=== PATIENT | male | born 1935 | race Caucasian/White ===

== ENCOUNTER 2019-01-14 01:08 | Outpatient (CLI) | payer MEDICARE, MEDICAID, SELFPAY ==
--- NOTE | 2019-01-14 08:29 | DI.US_ITS ---
SYMPTOM/DIAGNOSIS: TESTICULAR SWELLING, RT, N50.89 TESTICULAR ULTRASOUND: Routine examination. Comparison is made with 11/09/09. The left testicle measures 1.9 by 2 by 1.9 cm. It is homogeneous with normal blood flow. No evidence of an intratesticular mass or torsion is present. The left epididymal head is unremarkable. The right testicle measures 3.8 by 1.6 by 4.1 cm. It is homogeneous with normal blood flow. No evidence of torsion or intratesticular mass is seen. The right epididymis appears grossly unremarkable. There is a large right hydrocele measuring 5.9 by 4 by 6.6 cm. IMPRESSION: Large right hydrocele with a volume of 83 cc's. No evidence of intratesticular mass or torsion.
[2019-01-14 09:40] LABS: Bilirubin Negative (Negative); Blood Small (Negative); Clarity Clear; Glucose Negative (Negative); Ketones Negative (Negative); Leukocyte Esterase Negative (Negative); Nitrite Negative (Negative); Specific Gravity 1.015 (1.005-1.025); Urobilinogen 0.2 EU/dL (Up TO 0.2); pH 6.5 (5-8)
[2019-01-14 09:53] LABS: Bacteria Negative HPF (Negative); C & S Indicated? No; Casts Negative LPF (Negative); Crystals Negative HPF (Negative); Epithelial Cells Few HPF (Negative); Mucus Negative (Negative); WBC 0-2 HPF (0-5)
== END 2019-01-14 01:28 ==
PROVIDERS: PCP Family Medicine; Visit Provider Family Medicine
DX: N50.89 Other specified disorders of the male genital organs (principal); N43.2 Other hydrocele; R41.0 Disorientation, unspecified
CPT/HCPCS: 76870; 81003; 81015

== ENCOUNTER 2019-03-28 17:12 | Emergency (ER) | payer MEDICARE, MEDICAID, SELFPAY ==
[2019-03-28] VITALS (21 sets, daily range): BP systolic 159–191; BP diastolic 86–121; PULSE 41–72; RESP 16–18; TEMP 37–37.1; O2SAT 79–99
[2019-03-28] MEDS: Lidocaine 2% Jelly 6 ML SYR (18:50)
[2019-03-28 18:58] LABS: Bilirubin Negative (Negative); Blood Moderate (Negative); Clarity Clear; Glucose Negative (Negative); Ketones Negative (Negative); Leukocyte Esterase Negative (Negative); Nitrite Negative (Negative); Specific Gravity 1.025 (1.005-1.025); Urobilinogen 0.2 EU/dL (Up TO 0.2); pH 6.5 (5-8)
[2019-03-28 19:07] LABS: Bacteria Rare HPF (Negative); C & S Indicated? No; Casts 5-10 Hyaline LPF (Negative); Crystals Negative HPF (Negative); Epithelial Cells Few HPF (Negative); Mucus Negative (Negative); RBC 20-50 (0-2); WBC 0-2 HPF (0-5)
[2019-03-28] MEDS: Tamsulosin 0.4 MG CAPCR PO (19:55)
--- NOTE | 2019-03-28 20:05 | W.ED.GENAD ---
Discharge Plan Disposition Patient Disposition: HOME Condition: Improving Discharge Details Chief Complaint: Urinary Clinical Impression: Acute urinary retention Primary Care Provider: Aleks Martinez ED Provider: Fernando Craft Home Meds and New Rx's Prescriptions: New tamsulosin [Flomax] 0.4 mg capsule 0.4 mg PO DAILY Qty: 14 RF: 0 Continued Ensure Original liquid 474 ml PO DAILY Qty: 36114 RF: 11 naproxen sodium [Aleve] 220 MG capsule 220 mg PO BID PRNRF: 0 Morphine Sulfate 100 MG/5 ML solution 0.25 - 1 ml PO Q1-4H PRN Qty: 30 RF: 0 aspirin [Adult Low Dose Aspirin] 81 mg tablet,delayed release (DR/EC) 81 mg PO DAILY RF: 0 sennosides [senna] 8.6 mg tablet 17.2 mg PO DAILY RF: 0 donepezil 10 mg tablet 10 mg PO DAILY Qty: 90 RF: 3 amlodipine 5 mg tablet 5 mg PO DAILY Qty: 90 RF: 4 amlodipine 2.5 mg tablet 2.5 mg PO DAILY Qty: 90 RF: 4 Discharge Instructions Instructions: Urinary Retention in Men (ED) Additional Instructions: Please have patient take blood pressure medication as prescribed given noted hypertension in the emergency department. Otherwise make sure catheter stays clean and follow directions for drainage and cleaning. Follow-up with urology next week for removal of catheter and trial urination. If patient develops a fever or chills, new or worsening symptoms, or any further concerns return to the emergency department for reassessment Referrals: Nacho Partida MD [ [facility] STAFF PHYSICIAN] - (Follow-up with urology as directed by their office. If you do not hear from them please call their office on Monday for arrangement of appointment) Discharge Data Discharge Date/Time-TO BE ENTERED AT DEPARTURE: 03/28/19 20:32 Medical Decision Making Patient presenting to the emergency department for complaint of urinary retention. Patient has severe dementia and is oriented to person only. caregiver states that patient had been seen by home health who attempted to place a catheter given that patient has not urinated today but has had plenty of p.o. intake. Patient is on hospice and comfort measures only. Patient denies any pain or discomfort or other symptoms. Physical exam shows a right swollen testicle that has been swollen for a while and family states that is not new. Patient does have mild suprapubic tenderness. Bladder scanner was utilized and shows approximately 150 mL's of retained fluid and patient is unable to urinate. Catheter order was placed along with urinalysis. Review of previous records shows that patient has had testicular swelling for greater than 6 months. This is nonacute in nature. Patient had a total of 450 mL's of output after placement and urinalysis shows blood in the urine but otherwise no signs of infection. Given urinary retention I do feel its beneficial for patient to leave catheter in place and to be started on Flomax pending follow-up with urology. Otherwise given the patient is a hospice patient with no other complaints I do not feel that any other evaluation is needed at this time. Return precautions were discussed. Patient placed upon follow-up list for urology appointment. Patient was hypertensive in the emergency department so caregiver was instructed to please give patient's blood pressure medication as normally prescribed otherwise given that patient is asymptomatic I do not feel that any other interventions are needed. HPI General Mode of arrival: ambulatory. Date/Time Provider Initiated Documentation: 03/28/19 17:27. Limitations to Documentation: no limitations. Information obtained by: patient and RN notes reviewed. History of Present Illness 83 year old M presents to the emergency department with the chief complaint of Urinary retention, Quality is described as other (denies pain), Patient started experiencing this hour(s) (8) and it has been constant. No relieving factors improve symptom(s), No exacerbating factors reported . Patient notes no other symptoms.. Patient did receive the following treatments prior to arrival, none Related Data Home Medications Medication Instructions Recorded Confirmed naproxen sodium [Aleve] 220 mg PO BID PRN 06/16/15 12/26/18 aspirin 81 mg tablet,delayed 81 mg PO DAILY 06/12/18 03/28/19 release sennosides 8.6 mg tablet 17.2 mg PO DAILY tab 06/12/18 03/28/19 food supplement, lactose-reduced 474 ml PO DAILY #22086 ml 10/03/18 03/28/19 oral liquid donepezil 10 mg tablet 10 mg PO DAILY #90 tab 10/08/18 03/28/19 amlodipine 2.5 mg tablet 2.5 mg PO DAILY #90 tab 01/17/19 amlodipine 5 mg tablet 5 mg PO DAILY #90 tab 01/17/19 tamsulosin [Flomax] 0.4 mg PO DAILY #14 cap 03/28/19 Previous Rx's Medication Instructions Recorded food supplement, lactose-reduced 474 ml PO DAILY #64256 ml 10/03/18 oral liquid donepezil 10 mg tablet 10 mg PO DAILY #90 tab 10/08/18 amlodipine 2.5 mg tablet 2.5 mg PO DAILY #90 tab 01/17/19 amlodipine 5 mg tablet 5 mg PO DAILY #90 tab 01/17/19 tamsulosin [Flomax] 0.4 mg PO DAILY #14 cap 03/28/19 Allergies Allergy/AdvReac Type Severity Reaction Status Date / Time Penicillins Allergy Unknown Unverified 03/28/19 17:40 General Stated Complaint: Urinary MICHAEL: 3 Review of Systems Constitutional Denies body ache(s), Denies chills, Denies fever(s) and Denies malaise Cardiovascular Denies chest pain Respiratory Reports system reviewed and no additional complaints, except as docu Gastrointestinal Denies abdominal pain, Denies nausea and Denies vomiting Genitourinary Reports as per HPI, Denies hematuria, Reports difficulty urinating, Denies dysuria, Reports scrotal swelling, Denies testicular pain and Denies urinary urgency PFSH Surgical History Open Carpal Tunnel release Family History Mother No problems noted. Father Alzheimer disease Sister No problems noted. Sister No problems noted. Brother No problems noted. Brother No problems noted. Brother No problems noted. Social History Smoking/Tobacco Use Status: Former Tobacco Use Alcohol Intake: never Drug use: Never Substance use type: does not use What type of physical activity do you participate in: none Estrellita/Christianity: MORAVIAN Seatbelt use: always Additional Social history: unable to assess Exam Const General: cooperative and no acute distress Orientation: alert, awake and oriented to person Resp Effort & Inspection: normal respiratory effort and able to speak in complete sentences Auscultation: clear to auscultation bilaterally Cardio Rate: regular rate Rhythm: regular rhythm Heart Sounds: S1 normal and S2 normal GI Palpation: tender suprapubicly Penis: normal penis Meatus: meatus normal Testes: testicular swelling on the right Neuro General: alert, awake and oriented x3 Extrem General: normal capillary refill Course Vital Signs Temperature 37.0 C 03/28/19 17:11 Pulse 65 03/28/19 17:11 Respiratory Rate 16 03/28/19 17:11 Blood Pressure 183/92 H 03/28/19 17:11 Pulse Oximetry 97 03/28/19 17:11 Temperature 37.1 C 03/28/19 19:59 Temperature Source Skin 03/28/19 19:59 Pulse 62 03/28/19 19:59 Respiratory Rate 18 03/28/19 19:59 Blood Pressure 190/121 H 03/28/19 19:59 Blood Pressure Mean 138 03/28/19 19:46 Blood Pressure Position Sitting 03/28/19 17:11 Pulse Oximetry 95 03/28/19 19:59 Oxygen Delivery Method Room Air 03/28/19 19:59 Oxygen Flow Rate 0 03/28/19 19:59 Pain Level 0 03/28/19 19:59 Comment 03/28/19 17:11 Lab/Test Results Lab/Test Results: Laboratory Tests Range/Units 03/28/19 18:45 Urine Color (Yellow) Yellow Urine Clarity Clear Urine pH (5-8) 6.5 Ur Specific [place] (1.005-1.025) 1.025 Urine Protein (Negative) mg/dL >=300 H Urine Ketones (Negative) mg/dL Negative Urine Blood (Negative) Moderate H Urine Nitrite (Negative) Negative Urine Bilirubin (Negative) Negative Urine Urobilinogen (Up TO 0.2) EU/dL 0.2 Ur Leukocyte Esterase (Negative) Negative Urine RBC (0-2) 20-50 H Urine WBC (0-5) HPF 0-2 Ur Epithelial Cells (Negative) HPF Few Urine Crystals (Negative) HPF Negative Urine Bacteria (Negative) HPF Rare Urine Casts (Negative) LPF 5-10 hyaline Urine Mucus (Negative) Negative Ur Culture Indicated? No Urine Glucose (Negative) mg/dL Negative
--- NOTE | 2019-03-28 20:08 | ED.GENADUL_ITS ---
Discharge Plan Disposition Patient Disposition: HOME Condition: Improving Discharge Details Chief Complaint: Urinary Clinical Impression: Acute urinary retention Primary Care Provider: Aleks Martinez ED Provider: Fernando Craft Home Meds and New Rx's Prescriptions: New tamsulosin [Flomax] 0.4 mg capsule 0.4 mg PO DAILY Qty: 14 RF: 0 Continued Ensure Original liquid 474 ml PO DAILY Qty: 26098 RF: 11 naproxen sodium [Aleve] 220 MG capsule 220 mg PO BID PRNRF: 0 Morphine Sulfate 100 MG/5 ML solution 0.25 - 1 ml PO Q1-4H PRN Qty: 30 RF: 0 aspirin [Adult Low Dose Aspirin] 81 mg tablet,delayed release (DR/EC) 81 mg PO DAILY RF: 0 sennosides [senna] 8.6 mg tablet 17.2 mg PO DAILY RF: 0 donepezil 10 mg tablet 10 mg PO DAILY Qty: 90 RF: 3 amlodipine 5 mg tablet 5 mg PO DAILY Qty: 90 RF: 4 amlodipine 2.5 mg tablet 2.5 mg PO DAILY Qty: 90 RF: 4 Discharge Instructions Instructions: Urinary Retention in Men (ED) Additional Instructions: Please have patient take blood pressure medication as prescribed given noted h ypertension in the emergency department. Otherwise make sure catheter stays clean and follow directions for drainage and cleaning. Follow-up with urology next week for removal of catheter and trial urination. If patient develops a fever or chills, new or worsening symptoms, or any further concerns return to the emergency department for reassessment Referrals: Nacho Partida MD [ [facility] STAFF PHYSICIAN] - (Follow-up with urology as directed by their office. If you do not hear from them please call their office on Monday for arrangement of appointment) Discharge Data Discharge Date/Time-TO BE ENTERED AT DEPARTURE: 03/28/19 20:32 Medical Decision Making Patient presenting to the emergency department for complaint of urinary retention. Patient has severe dementia and is oriented to person only. caregiver states that patient had been seen by home health who attempted to place a catheter given that patient has not urinated today but has had plenty of p.o. intake. Patient is on hospice and comfort measures only. Patient denies any pain or discomfort or other symptoms. Physical exam shows a right swollen testicle that has been swollen for a while and family states that is not new. Patient does have mild suprapubic tenderness. Bladder scanner was utilized and shows approximately 150 mL's of retained fluid and patient is unable to urinate. Catheter order was placed along with urinalysis. Review of previous records shows that patient has had testicular swelling for greater than 6 months. This is nonacute in nature. Patient had a total of 450 mL's of output after placement and urinalysis shows blood in the urine but otherwise no signs of infection. Given urinary retention I do feel its beneficial for patient to leave catheter in place and to be started on Flomax pending follow-up with urology. Otherwise given the patient is a hospice patient with no other complaints I do not feel that any other evaluation is needed at this time. Return precautions were discussed. Patient placed upon follow-up list for urology appointment. Patient was hypertensive in the emergency department so caregiver was instructed to please give patient's blood pressure medication as normally prescribed otherwise given that patient is asymptomatic I do not feel that any other interventions are needed. HPI General Mode of arrival: ambulatory . Date/Time Provider Initiated Documentation: 03/28/19 17:27 . Limitations to Documentation: no limitations . Information obtained by: patient and RN notes reviewed . History of Present Illness 83 year old M presents to the emergency department with the chief complaint of Urinary retention, Quality is described as other (denies pain), Patient started experiencing this hour(s) (8) and it has been constant. No relieving factors improve symptom(s), No exacerbating factors reported . Patient notes no other symptoms.. Patient did receive the following treatments prior to arrival, none Related Data Home Medications Medication Instructions Recorded Confirmed naproxen sodium [Aleve] 220 mg PO BID PRN 06/16/15 12/26/18 aspirin 81 mg tablet,delayed 81 mg PO DAILY 06/12/18 03/28/19 release sennosides 8.6 mg tablet 17.2 mg PO DAILY tab 06/12/18 03/28/19 food supplement, lactose-reduced 474 ml PO DAILY #22180 ml 10/03/18 03/28/19 oral liquid donepezil 10 mg tablet 10 mg PO DAILY #90 tab 10/08/18 03/28/19 amlodipine 2.5 mg tablet 2.5 mg PO DAILY #90 tab 01/17/19 amlodipine 5 mg tablet 5 mg PO DAILY #90 tab 01/17/19 tamsulosin [Flomax] 0.4 mg PO DAILY #14 cap 03/28/19 Previous Rx's Medication Instructions Recorded food supplement, lactose-reduced 474 ml PO DAILY #21897 ml 10/03/18 oral liquid donepezil 10 mg tablet 10 mg PO DAILY #90 tab 10/08/18 amlodipine 2.5 mg tablet 2.5 mg PO DAILY #90 tab 01/17/19 amlodipine 5 mg tablet 5 mg PO DAILY #90 tab 01/17/19 tamsulosin [Flomax] 0.4 mg PO DAILY #14 cap 03/28/19 Allergies Allergy/AdvReac Type Severity Reaction Status Date / Time Penicillins Allergy Unknown Unverified 03/28/19 17:40 General Stated Complaint: Urinary MICHAEL: 3 Review of Systems Constitutional Denies body ache(s), Denies chills, Denies fever(s) and Denies malaise Cardiovascular Denies chest pain Respiratory Reports system reviewed and no additional complaints, except as docu Gastrointestinal Denies abdominal pain, Denies nausea and Denies vomiting Genitourinary Reports as per HPI, Denies hematuria, Reports difficulty urinating, Denies dysuria, Reports scrotal swelling, Denies testicular pain and Denies urinary urgency [facility] Surgical History Open Carpal Tunnel release Family History Mother No problems noted. Father Alzheimer disease Sister No problems noted. Sister No problems noted. Brother No problems noted. Brother No problems noted. Brother No problems noted. Social History Smoking/Tobacco Use Status: Former Tobacco Use Alcohol Intake: never Drug use: Never Substance use type: does not use What type of physical activity do you participate in: none Estrellita/Worship: QUAKER Seatbelt use: always Additional Social history: unable to assess Exam Const General: cooperative and no acute distress Orientation: alert, awake and oriented to person Resp Effort & Inspection: normal respiratory effort and able to speak in complete sentences Auscultation: clear to auscultation bilaterally Cardio Rate: regular rate Rhythm: regular rhythm Heart Sounds: S1 normal and S2 normal GI Palpation: tender suprapubicly Penis: normal penis Meatus: meatus normal Testes: testicular swelling on the right Neuro General: alert, awake and oriented x3 Extrem General: normal capillary refill Course Vital Signs Temperature 37.0 C 03/28/19 17:11 Pulse 65 03/28/19 17:11 Respiratory Rate 16 03/28/19 17:11 Blood Pressure 183/92 H 03/28/19 17:11 Pulse Oximetry 97 03/28/19 17:11 Temperature 37.1 C 03/28/19 19:59 Temperature Source Skin 03/28/19 19:59 Pulse 62 03/28/19 19:59 Respiratory Rate 18 03/28/19 19:59 Blood Pressure 190/121 H 03/28/19 19:59 Blood Pressure Mean 138 03/28/19 19:46 Blood Pressure Position Sitting 03/28/19 17:11 Pulse Oximetry 95 03/28/19 19:59 Oxygen Delivery Method Room Air 03/28/19 19:59 Oxygen Flow Rate 0 03/28/19 19:59 Pain Level 0 03/28/19 19:59 Comment 03/28/19 17:11 Lab/Test Results Lab/Test Results: Laboratory Tests Range/Units 03/28/19 18:45 Urine Color (Yellow) Yellow Urine Clarity Clear Urine pH (5-8) 6.5 Ur Specific [place] (1.005-1.025) 1.025 Urine Protein (Negative) mg/dL >=300 H Urine Ketones (Negative) mg/dL Negative Urine Blood (Negative) Moderate H Urine Nitrite (Negative) Negative Urine Bilirubin (Negative) Negative Urine Urobilinogen (Up TO 0.2) EU/dL 0.2 Ur Leukocyte Esterase (Negative) Negative Urine RBC (0-2) 20-50 H Urine WBC (0-5) HPF 0-2 Ur Epithelial Cells (Negative) HPF Few Urine Crystals (Negative) HPF Negative Urine Bacteria (Negative) HPF Rare Urine Casts (Negative) LPF 5-10 hyaline Urine Mucus (Negative) Negative Ur Culture Indicated? No Urine Glucose (Negative) mg/dL Negative
== END 2019-03-28 20:32 | disposition home or self-care (01) ==
PROVIDERS: Emergency Provider Nurse Practitioner Family; PCP Family Medicine
DX: R33.9 Retention of urine, unspecified (principal); F03.90 Unspecified dementia, unspecified severity, without behavioral disturbance, psychotic disturbance, mood disturbance, and anxiety; I12.9 Hypertensive chronic kidney disease with stage 1 through stage 4 chronic kidney disease, or unspecified chronic kidney disease; N18.9 Chronic kidney disease, unspecified; J44.9 Chronic obstructive pulmonary disease, unspecified; Z87.891 Personal history of nicotine dependence
CPT/HCPCS: 51702; 99283; 81003; 81015

== ENCOUNTER 2019-04-05 09:57 | Outpatient (REF) | payer MEDICARE, MEDICAID, SELFPAY | END 2019-04-05 10:17 | LOC: LBN 09:57 | PROVIDERS: PCP Family Medicine; Visit Provider Family Medicine | DX: R33.9 Retention of urine, unspecified (principal) | CPT/HCPCS: 87077; 87086; 87186 ==

== ENCOUNTER 2019-04-05 18:18 | Inpatient (IN) | payer MEDICARE, MEDICAID, SELFPAY ==
[2019-04-05] VITALS (19 sets, daily range): BP systolic 141–175; BP diastolic 73–105; PULSE 63–117; RESP 19–36; TEMP 37.8–39; O2SAT 93–100
--- NOTE | 2019-04-05 18:28 | W.ED.GENAD ---
Discharge Plan Disposition Patient Disposition: [facility] INPATIENT Condition: Stable Discharge Details Chief Complaint: GenMedical Clinical Impression: Sepsis due to urinary tract infection Primary Care Provider: Aleks Martinez ED Provider: Lewis Humphrey Home Meds and New Rx's Prescriptions: No Action Ensure Original liquid 474 ml PO DAILY Qty: 91132 RF: 11 melatonin 5 mg tablet 5 mg PO HS PRN (Reason: sleep) Qty: 30 RF: 2 sulfamethoxazole-trimethoprim [Bactrim DS] 800-160 mg tablet 1 tab PO BID Qty: 28 RF: 0 naproxen sodium [Aleve] 220 MG capsule 220 mg PO BID PRNRF: 0 Morphine Sulfate 100 MG/5 ML solution 0.25 - 1 ml PO Q1-4H PRN Qty: 30 RF: 0 aspirin [Adult Low Dose Aspirin] 81 mg tablet,delayed release (DR/EC) 81 mg PO DAILY RF: 0 donepezil 10 mg tablet 10 mg PO DAILY Qty: 90 RF: 3 amlodipine 5 mg tablet 5 mg PO DAILY Qty: 90 RF: 4 amlodipine 2.5 mg tablet 2.5 mg PO DAILY Qty: 90 RF: 4 tamsulosin [Flomax] 0.4 mg capsule 0.4 mg PO DAILY Qty: 30 RF: 11 sennosides [senna] 8.6 mg tablet 17.2 mg PO DAILY RF: 0 Medical Decision Making 83 yo le with hx of dementia which limits hx I can obtain from him as he only knows his name, copd, htn, hld, aaa, who comes in with general weakness and inability to ambulate and has a fever, unclear how long the fever has been going on. He has no rashes, does have diminished breath sounds at the bases bilaterally on exam, and earlier this week did have a greenwood placed for urinary retention. given his fever and weakness suspect infectious etiology, will order labs and cultures and cxr and monitor. Pt is laughing in no distress on my exam and is hd stable labs show wbc of 16, and urine positive for nitrite so will start ceftriaxone. Pt's dpoa Meccajohndario arrived and states he is on hospice and I confirmed this with Dr. Garcia. His colst form states he is willing to have abx and given the reason he is on hospice is his aaa per Dr. Garcia he can be admitted to the hospitalist given this is unrelated to his aaa. I spoke with Dr. flynn who accepts the patient for admission Differential Diagnosis sepsis, uti, pna Medical Records Medical records reviewed: Yes I reviewed the patient's medical records. Imaging Data Radiologic Study: Attestation: I personally reviewed and interpreted this imaging study as follows: Imaging: X-Ray Radiologist's impression: IMPRESSION: Concern for possible developing left retrocardiac airspace disease. Lateral film may be beneficial if clinically warranted. Lab Data Lab results reviewed: Yes I reviewed the patient's lab results. ECG Data Attestation: I personally reviewed and interpreted this ECG (s) as follows: Prior ECG tracings: not available for review Interpretation: afib, rate of 80, qtc 434 HPI General Mode of arrival: EMS. Date/Time Provider Initiated Documentation: 04/05/19 18:23. Limitations to Documentation: altered mental status. Information obtained by: EMS. History of Present Illness 83 year old M presents to the emergency department with the chief complaint of weakness, described as moderate, Patient started experiencing this unknown and it has been constant. No relieving factors improve symptom(s), No exacerbating factors reported . Patient notes fever/chills. Related Data Home Medications Medication Instructions Recorded Confirmed naproxen sodium [Aleve] 220 mg PO BID PRN 06/16/15 04/05/19 aspirin 81 mg tablet,delayed 81 mg PO DAILY 06/12/18 04/05/19 release food supplement, lactose-reduced 474 ml PO DAILY #24683 ml 10/03/18 04/05/19 oral liquid donepezil 10 mg tablet 10 mg PO DAILY #90 tab 10/08/18 04/05/19 amlodipine 2.5 mg tablet 2.5 mg PO DAILY #90 tab 01/17/19 04/05/19 amlodipine 5 mg tablet 5 mg PO DAILY #90 tab 01/17/19 04/05/19 tamsulosin 0.4 mg capsule 0.4 mg PO DAILY #30 cap 04/03/19 04/05/19 melatonin 5 mg tablet 5 mg PO HS PRN #30 tab 04/05/19 04/05/19 sennosides 8.6 mg tablet 17.2 mg PO DAILY tab 04/05/19 04/05/19 sulfamethoxazole 800 1 tab PO BID #28 tab 04/05/19 04/05/19 mg-trimethoprim 160 mg tablet Previous Rx's Medication Instructions Recorded food supplement, lactose-reduced 474 ml PO DAILY #45555 ml 10/03/18 oral liquid donepezil 10 mg tablet 10 mg PO DAILY #90 tab 10/08/18 amlodipine 2.5 mg tablet 2.5 mg PO DAILY #90 tab 01/17/19 amlodipine 5 mg tablet 5 mg PO DAILY #90 tab 01/17/19 tamsulosin 0.4 mg capsule 0.4 mg PO DAILY #30 cap 04/03/19 melatonin 5 mg tablet 5 mg PO HS PRN #30 tab 04/05/19 sulfamethoxazole 800 1 tab PO BID #28 tab 04/05/19 mg-trimethoprim 160 mg tablet Allergies Allergy/AdvReac Type Severity Reaction Status Date / Time Penicillins Allergy Unknown Unverified 04/05/19 19:24 General Stated Complaint: GenMedical MICHAEL: 3 Review of Systems Review of Systems Unobtainable due to mental status Gastrointestinal Denies vomiting PFSH Social History Smoking/Tobacco Use Status: Former Tobacco Use Alcohol Intake: never Drug use: Never Substance use type: does not use What type of physical activity do you participate in: none Estrellita/Baptist: [employer]IN[employer] Seatbelt use: always Additional Social history: unable to assess Exam Const General: no acute distress Orientation: alert HENMT Head: normal to inspection Ears: external ears normal General nose exam: external nose normal Mouth: moist mucous membranes Eyes General: appearance normal, both eyes and all related structures Neck Neck: normal visual inspection Resp Effort & Inspection: normal respiratory effort and able to speak in complete sentences Cardio Rate: regular rate Skin General skin exam: no rashes or lesions noted Neuro General: alert Extrem General: normal to inspection Psych Mental Status: mental status grossly normal Course Vital Signs Temperature 37.8 C H 04/05/19 18:18 Pulse 85 04/05/19 18:18 Respiratory Rate 30 H 04/05/19 18:18 Blood Pressure 145/94 H 04/05/19 18:18 Pulse Oximetry 96 04/05/19 18:18 Temperature 37.8 C H 04/05/19 18:18 Temperature Source Skin 04/05/19 18:18 Pulse 85 04/05/19 18:18 Respiratory Rate 30 H 04/05/19 18:18 Blood Pressure 145/94 H 04/05/19 18:18 Blood Pressure Position Sitting 04/05/19 18:18 Pulse Oximetry 96 04/05/19 18:18 Oxygen Delivery Method Room Air 04/05/19 18:18 Oxygen Flow Rate 0 04/05/19 18:18 Lab/Test Results Lab/Test Results: 04/05/19 18:14 Blood Blood Culture - Pending 04/05/19 18:14 Blood Blood Culture - Pending
--- NOTE | 2019-04-05 18:32 | ED.GENADUL_ITS ---
Discharge Plan Disposition Patient Disposition: [facility] INPATIENT Condition: Stable Discharge Details Chief Complaint: GenMedical Clinical Impression: Sepsis due to urinary tract infection Primary Care Provider: Aleks Martinez ED Provider: Lewis Humphrey Home Meds and New Rx's Prescriptions: No Action Ensure Original liquid 474 ml PO DAILY Qty: 25390 RF: 11 melatonin 5 mg tablet 5 mg PO HS PRN (Reason: sleep) Qty: 30 RF: 2 sulfamethoxazole-trimethoprim [Bactrim DS] 800-160 mg tablet 1 tab PO BID Qty: 28 RF: 0 naproxen sodium [Aleve] 220 MG capsule 220 mg PO BID PRNRF: 0 Morphine Sulfate 100 MG/5 ML solution 0.25 - 1 ml PO Q1-4H PRN Qty: 30 RF: 0 aspirin [Adult Low Dose Aspirin] 81 mg tablet,delayed release (DR/EC) 81 mg PO DAILY RF: 0 donepezil 10 mg tablet 10 mg PO DAILY Qty: 90 RF: 3 amlodipine 5 mg tablet 5 mg PO DAILY Qty: 90 RF: 4 amlodipine 2.5 mg tablet 2.5 mg PO DAILY Qty: 90 RF: 4 tamsulosin [Flomax] 0.4 mg capsule 0.4 mg PO DAILY Qty: 30 RF: 11 sennosides [senna] 8.6 mg tablet 17.2 mg PO DAILY RF: 0 Medical Decision Making 83 yo le with hx of dementia which limits hx I can obtain from him as he only knows his name, copd, htn, hld, aaa, who comes in with general weakness and inability to ambulate and has a fever, unclear how long the fever has been going on. He has no rashes, does have diminished breath sounds at the bases bilaterally on exam, and earlier this week did have a greenwood placed for urinary retention. given his fever and weakness suspect infectious etiology, will order labs and cultures and cxr and monitor. Pt is laughing in no distress on my exam and is hd stable labs show wbc of 16, and urine positive for nitrite so will start ceftriaxone. Pt's dpoa Meccajohndario arrived and states he is on hospice and I confirmed this with Dr. Garcia. His colst form states he is willing to have abx and given the reason he is on hospice is his aaa per Dr. Garcia he can be admitted to the hospitalist given this is unrelated to his aaa. I spoke with Dr. flynn who accepts the patient for admission Differential Diagnosis sepsis, uti, pna Medical Records Medical records reviewed: Yes I reviewed the patient's medical records. Imaging Data Radiologic Study: Attestation: I personally reviewed and interpreted this imaging study as follows: Imaging: X-Ray Radiologist's impression: IMPRESSION: Concern for possible developing left retrocardiac airspace disease. Lateral film may be beneficial if clinically warranted. Lab Data Lab results reviewed: Yes I reviewed the patient's lab results. ECG Data Attestation: I personally reviewed and interpreted this ECG (s) as follows: Prior ECG tracings: not available for review Interpretation: afib, rate of 80, qtc 434 HPI General Mode of arrival: EMS . Date/Time Provider Initiated Documentation: 04/05/19 18:23 . Limitations to Documentation: altered mental status . Information obtained by: EMS . History of Present Illness 83 year old M presents to the emergency department with the chief complaint of weakness, described as moderate, Patient started experiencing this unknown and it has been constant. No relieving factors improve symptom(s), No exacerbating factors reported . Patient notes fever/chills. Related Data Home Medications Medication Instructions Recorded Confirmed naproxen sodium [Aleve] 220 mg PO BID PRN 06/16/15 04/05/19 aspirin 81 mg tablet,delayed 81 mg PO DAILY 06/12/18 04/05/19 release food supplement, lactose-reduced 474 ml PO DAILY #34241 ml 10/03/18 04/05/19 oral liquid donepezil 10 mg tablet 10 mg PO DAILY #90 tab 10/08/18 04/05/19 amlodipine 2.5 mg tablet 2.5 mg PO DAILY #90 tab 01/17/19 04/05/19 amlodipine 5 mg tablet 5 mg PO DAILY #90 tab 01/17/19 04/05/19 tamsulosin 0.4 mg capsule 0.4 mg PO DAILY #30 cap 04/03/19 04/05/19 melatonin 5 mg tablet 5 mg PO HS PRN #30 tab 04/05/19 04/05/19 sennosides 8.6 mg tablet 17.2 mg PO DAILY tab 04/05/19 04/05/19 sulfamethoxazole 800 1 tab PO BID #28 tab 04/05/19 04/05/19 mg-trimethoprim 160 mg tablet Previous Rx's Medication Instructions Recorded food supplement, lactose-reduced 474 ml PO DAILY #74038 ml 10/03/18 oral liquid donepezil 10 mg tablet 10 mg PO DAILY #90 tab 10/08/18 amlodipine 2.5 mg tablet 2.5 mg PO DAILY #90 tab 01/17/19 amlodipine 5 mg tablet 5 mg PO DAILY #90 tab 01/17/19 tamsulosin 0.4 mg capsule 0.4 mg PO DAILY #30 cap 04/03/19 melatonin 5 mg tablet 5 mg PO HS PRN #30 tab 04/05/19 sulfamethoxazole 800 1 tab PO BID #28 tab 04/05/19 mg-trimethoprim 160 mg tablet Allergies Allergy/AdvReac Type Severity Reaction Status Date / Time Penicillins Allergy Unknown Unverified 04/05/19 19:24 General Stated Complaint: GenMedical MICHAEL: 3 Review of Systems Review of Systems Unobtainable due to mental status Gastrointestinal Denies vomiting PFSH Social History Smoking/Tobacco Use Status: Former Tobacco Use Alcohol Intake: never Drug use: Never Substance use type: does not use What type of physical activity do you participate in: none Estrellita/Mormonism: ANGLICAN Seatbelt use: always Additional Social history: unable to assess Exam Const General: no acute distress Orientation: alert HENMT Head: normal to inspection Ears: external ears normal General nose exam: external nose normal Mouth: moist mucous membranes Eyes General: appearance normal, both eyes and all related structures Neck Neck: normal visual inspection Resp Effort & Inspection: normal respiratory effort and able to speak in complete sentences Cardio Rate: regular rate Skin General skin exam: no rashes or lesions noted Neuro General: alert Extrem General: normal to inspection Psych Mental Status: mental status grossly normal Course Vital Signs Temperature 37.8 C H 04/05/19 18:18 Pulse 85 04/05/19 18:18 Respiratory Rate 30 H 04/05/19 18:18 Blood Pressure 145/94 H 04/05/19 18:18 Pulse Oximetry 96 04/05/19 18:18 Temperature 37.8 C H 04/05/19 18:18 Temperature Source Skin 04/05/19 18:18 Pulse 85 04/05/19 18:18 Respiratory Rate 30 H 04/05/19 18:18 Blood Pressure 145/94 H 04/05/19 18:18 Blood Pressure Position Sitting 04/05/19 18:18 Pulse Oximetry 96 04/05/19 18:18 Oxygen Delivery Method Room Air 04/05/19 18:18 Oxygen Flow Rate 0 04/05/19 18:18 Lab/Test Results Lab/Test Results: 04/05/19 18:14 Blood Blood Culture - Pending 04/05/19 18:14 Blood Blood Culture - Pending
[2019-04-05 18:45] LABS: Abs Immature Grans 0.04 k/cumm (0.0-0.09); Absolute Basophil Count 0.03 k/cumm (0.0-0.2); Absolute Eosinophil Count 0.15 k/cumm (0.0-0.7); Absolute Lymphocyte Count 1.23 k/cumm (1.2-3.4); Absolute Monocyte Count 1.04 k/cumm (0.11-0.7); Absolute Neutrophil Count 13.97 k/cumm (1.2-6.7); Basophils % 0.2; Eosinophils % 0.9; HCT 50.5 % (40.0-50.0); HGB 16.7 g/dL (13.5-17.5); Immature Grans % 0.2; Lymphocytes % 7.5; Mean Corp. HGB Concentration 33.1 g/dL (32.0-36.0); Mean Corpuscular Hemoglobin 30.7 pg (27.0-33.0); Mean Corpuscular Volume 92.8 fL (80-95); Mean Platelet Volume 11.5 fL (8.0-11.0); Monocytes % 6.3; Neutrophils % 84.9; Platelet Count 156 x1000/uL (130-400); RBC 5.44 m/cumm (4.50-6.00); RBC Distribution Width 13.9 % (11.8-14.1); White Blood Cell Count 16.46 k/cumm (4.4-10.8)
[2019-04-05 18:47] LABS: Lactate-non-spesis 1.1 mmol/l (0.6-1.4)
--- NOTE | 2019-04-05 18:51 | DI.RAD_ITS ---
SYMPTOM/DIAGNOSIS: FEVER PORTABLE CHEST: Comparison is made with 15 March 2012. Comparison is also made with chest CT dated 26 March 2018. The heart is again noted to be enlarged. The aorta is tortuous. There is a question of some increased densities seen at the left lung base. There may be a tiny left pleural effusion. The right lung appears clear. IMPRESSION: Cardiomegaly. Question of a left lower lobe infiltrate.
[2019-04-05 19:04] LABS: ALT 19 U/L (12-78); AST 17 U/L (15-37); Albumin 3.8 g/dL (3.4-5.0); Alkaline Phosphatase 112 U/L (46-116); Anion Gap 9.5 mmol/L (3-11); BUN 25 mg/dL (7-18); Bilirubin, Total 1.2 mg/dL (0.2-1.0); CO2 27.5 mmol/L (21.0-32.0); CREATININE 1.56 mg/dL (0.70-1.30); Chloride 103 mmol/L (98-107); Estimated GFR 42.82 (mL/min/1.73m2); Glucose 124 mg/dL (70-100); PTT Activated 25.2 sec (21.0-31.4); Potassium 4.1 mmol/L (3.5-5.1); Prothrombin Time 10.2 sec (9.3-11.0); Sodium 140 mmol/L (136-145); Total Protein 7.8 g/dL (6.4-8.2)
[2019-04-05] MEDS: Normal Saline 1,000 ML 1000 ML IV (19:40)
[2019-04-05] MEDS: cefTRIAXone 2 GM/50 ML BAG IVPB (19:41)
[2019-04-05] MEDS: Normal Saline Flush 10 ML SYR IVP (19:42)
--- NOTE | 2019-04-05 19:47 | DI.VRAD_ITS ---
EXAM: XR Chest, 1 View EXAM DATE/TIME: 04/05/2019 6:52 PM CLINICAL HISTORY: 83 years old, male; Fever TECHNIQUE: Imaging protocol: XR of the chest, 1 view. COMPARISON: CTA THORAX/ABDOMEN/PELVIS 03/26/2018 7:18 AM FINDINGS: Lungs: Subtle hazy/patchy opacities in the left retrocardiac region. Question of right lung base atelectasis. Remainder of the lungs are grossly clear. Pleural space: Unremarkable. No pleural effusion. No pneumothorax. Heart/Mediastinum: Mild cardiomegaly suggested. Vasculature: Tortuous and calcified aorta. Bones/joints: No acute abnormality or aggressive osseous lesion. IMPRESSION: Concern for possible developing left retrocardiac airspace disease. Lateral film may be beneficial if clinically warranted. Dictated and Authenticated by: Shane Zambrano MD. Ordering:CUCO Saucedo MD
[2019-04-05 19:51] LABS: Bilirubin Negative (Negative); Blood Large (Negative); Clarity Cloudy (Clear); Glucose Negative (Negative); Ketones Negative (Negative); Leukocyte Esterase Small (Negative); Nitrite Positive (Negative); Specific Gravity 1.025 (1.005-1.025)
[2019-04-05 20:04] LABS: Bacteria Many HPF (Negative); C & S Indicated? C&S Done As Ordered; RBC >50 (0-2); WBC >50 HPF (0-5)
--- NOTE | 2019-04-05 20:34 | W.PM.HP.N ---
Date of service: 04/05/19 Time of Service: 20:35 Assessment and Plan (1) Sepsis: Start date: 04/05/19 Current visit: Yes Status: Acute This is an 83-year-old gentleman with sudden onset of symptoms of sepsis after Donis catheter placement for urinary outlet obstruction at home on hospice for AAA. He was on Bactrim for possible UTI and has now been placed on Rocephin IV. Follow-up urine and blood cultures and adjust therapy accordingly. Patient will be kept comfortable and is a DNR/DNI. He is not hypotensive and will be given IV fluid hydration during this hospital stay. If he decompensates, he will not have pressors or more aggressive medical care because of his CODE STATUS and wishes with hospice. Qualifiers: Sepsis type: sepsis due to unspecified organism Qualified Code(s): A41.9 - Sepsis, unspecified organism (2) UTI (urinary tract infection): Current visit: Yes Status: Acute Continue IV Rocephin and hydration. Donis catheter was changed and will be maintained for comfort. Qualifiers: Hematuria presence: without hematuria Urinary tract infection type: site unspecified Qualified Code(s): N39.0 - Urinary tract infection, site not specified (3) Pneumonia: Start date: 04/05/19 Current visit: Yes Status: Acute There is a possible retrocardiac infiltrate which will be covered with Rocephin IV. Consider adding doxycycline. Follow-up chest x-ray next 2 days. 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 (5) Dementia: Current visit: No Status: Chronic End-stage patient on oral therapy, continue medical therapy and maintenance care on hospice at home if possible. Qualifiers: Alzheimer's disease onset: unspecified onset Dementia behavioral disturbance: without behavioral disturbance Dementia type: Alzheimer's disease Qualified Code(s): G30.9 - Alzheimer's disease, unspecified; F02.80 - Dementia in other diseases classified elsewhere without behavioral disturbance (6) AAA (abdominal aortic aneurysm): Current visit: No Status: Chronic On hospice and this will not be treated surgically. Qualifiers: Presence of rupture: without rupture Qualified Code(s): I71.4 - Abdominal aortic aneurysm, without rupture History of Present Illness Chief Complaint: Generalized weakness with fever Narrative: This is an 83-year-old gentleman who was brought into the ED for evaluation of change in mental status with dementia now with fever and increased weakness. He did have a UTI treated with Bactrim recently and has bladder outlet obstruction Donis catheter placed recently for this problem. This was changed during his ED visit with urine reevaluated and cultured. He also had blood cultures obtained during the ED visit. He was started on IV antibiotics and admitted for sepsis syndrome having fever with tachycardia, and elevated white blood cell count and change in mental status. He is a DNR/DNI and on hospice for AAA but does want to be treated for reversible problems. He does have a home with his DPOA who is his ex-. She is also elderly and frail. Patient is not able to offer much history of dementia and his ex- was not present during my interview. Review of Systems Review of Systems 13 point review of systems otherwise unrevealing when reviewed with the POA in the ED and otherwise not obtainable with patient's dementia. He does have an indwelling catheter draining clear urine. COUNT INCLUDES THE [facility] Surgical History Open Carpal Tunnel release Family History Mother No problems noted. Father Alzheimer disease Sister No problems noted. Sister No problems noted. Brother No problems noted. Brother No problems noted. Brother No problems noted. Social History Smoking/Tobacco Use Status: Former Tobacco Use Alcohol Intake: never Drug use: Never Substance use type: does not use What type of physical activity do you participate in: none Estrellita/Jainism: EVANGELICAL Seatbelt use: always Additional Social history: unable to assess Meds Home Medications Medication Instructions Recorded Confirmed Type naproxen sodium [Aleve] 220 mg PO BID PRN 06/16/15 04/05/19 History Morphine Sulfate 0.25 - 1 ml PO Q1-4H PRN #30 ml 03/26/18 04/05/19 Clinic aspirin 81 mg tablet,delayed 81 mg PO DAILY 06/12/18 04/05/19 History release food supplement, lactose-reduced 474 ml PO DAILY #79694 ml 10/03/18 04/05/19 Rx oral liquid donepezil 10 mg tablet 10 mg PO DAILY #90 tab 10/08/18 04/05/19 Rx amlodipine 2.5 mg tablet 2.5 mg PO DAILY #90 tab 01/17/19 04/05/19 Rx amlodipine 5 mg tablet 5 mg PO DAILY #90 tab 01/17/19 04/05/19 Rx tamsulosin 0.4 mg capsule 0.4 mg PO DAILY #30 cap 04/03/19 04/05/19 Rx melatonin 5 mg tablet 5 mg PO HS PRN #30 tab 04/05/19 04/05/19 Rx sennosides 8.6 mg tablet 17.2 mg PO DAILY tab 04/05/19 04/05/19 History sulfamethoxazole 800 1 tab PO BID #28 tab 04/05/19 04/05/19 Rx mg-trimethoprim 160 mg tablet Allergies Allergy/AdvReac Type Severity Reaction Status Date / Time Penicillins Allergy Unknown Unverified 04/05/19 19:24 Exam Narrative Exam Narrative: General: Patient is lying in bed on his right side eyes open but not responding to conversation. He appears comfortable. He is not oriented to person place or time. HEENT: Normocephalic. Eyes with pupils equal and reactive to light symmetrically, extraocular movement intact and sclera anicteric. Face does have slight right droop. Oropharynx with dry oral mucosa patient edentulous. Neck: Supple without JVD. Back: Kyphotic without CVA tenderness. Lungs: Poor expiratory effort with decreased aeration both bases, no focalizing rales or rhonchi and fair aeration with bronchovesicular breath sounds diffusely. Heart: Irregular rhythm, normal rate, no appreciable murmurs or gallops. Abdomen: Obese contour, soft and nontender with no palpable hepatomegaly. Bowel sounds positive in all quadrants. Genitalia/rectal: Indwelling Donis catheter in urethra otherwise exam deferred. Extremities: Nonpitting edema bilaterally with no clubbing or cyanosis. Skin: Pale, warm and dry. Chronic venous stasis changes over lower extremities with shiny atrophic skin and loss of hair. Neuro: Patient appears to move all extremities with no focal motor deficits but has generalized weakness with decreased motor strength, cranial nerves II through XII grossly intact. Results Imaging Imaging Studies: EXAM: XR Chest, 1 View EXAM DATE/TIME: 04/05/2019 6:52 PM CLINICAL HISTORY: 83 years old, male; Fever TECHNIQUE: Imaging protocol: XR of the chest, 1 view. COMPARISON: CTA THORAX/ABDOMEN/PELVIS 03/26/2018 7:18 AM FINDINGS: Lungs: Subtle hazy/patchy opacities in the left retrocardiac region. Question of right lung base atelectasis. Remainder of the lungs are grossly clear. Pleural space: Unremarkable. No pleural effusion. No pneumothorax. Heart/Mediastinum: Mild cardiomegaly suggested. Vasculature: Tortuous and calcified aorta. Bones/joints: No acute abnormality or aggressive osseous lesion. IMPRESSION: Concern for possible developing left retrocardiac airspace disease. Lateral film may be beneficial if clinically warranted. Dictated and Authenticated by: Shane Zambrano MD. Labs : 04/05/19 18:34 04/05/19 18:34 Laboratory Results - last 24 hr 04/05/19 04/05/19 04/05/19 18:34 18:34 18:34 WBC 16.46 H RBC 5.44 Hgb 16.7 Hct 50.5 H MCV 92.8 MCH 30.7 MCHC 33.1 RDW 13.9 Plt Count 156 MPV 11.5 H Immature Gran % 0.2 Neutrophils % 84.9 Lymphocytes % 7.5 Monocytes % 6.3 Eosinophils % 0.9 Basophils % 0.2 Absolute Neutrophils 13.97 H Absolute Lymphocytes 1.23 Absolute Monocytes 1.04 H Absolute Eosinophils 0.15 Absolute Basophils 0.03 PT INR APTT Sodium 140 Potassium 4.1 Chloride 103 Carbon Dioxide 27.5 Anion Gap 9.5 BUN 25 H Creatinine 1.56 H Estimated GFR/1.73 m2 42.82 Glucose 124 H Lactate 1.1 Calcium 9.0 Magnesium 2.0 Total Bilirubin 1.2 H AST 17 ALT 19 Alkaline Phosphatase 112 Total Protein 7.8 Albumin 3.8 Urine Color Urine Clarity Urine pH Ur Specific [place] Urine Protein Urine Ketones Urine Blood Urine Nitrite Urine Bilirubin Urine Urobilinogen Ur Leukocyte Esterase Urine RBC Urine WBC Ur Epithelial Cells Urine Crystals Urine Bacteria Urine Mucus Ur Culture Indicated? Urine Glucose 04/05/19 04/05/19 18:34 19:45 WBC RBC Hgb Hct MCV MCH MCHC RDW Plt Count MPV Immature Gran % Neutrophils % Lymphocytes % Monocytes % Eosinophils % Basophils % Absolute Neutrophils Absolute Lymphocytes Absolute Monocytes Absolute Eosinophils Absolute Basophils PT 10.2 INR 1.0 APTT 25.2 Sodium Potassium Chloride Carbon Dioxide Anion Gap BUN Creatinine Estimated GFR/1.73 m2 Glucose Lactate Calcium Magnesium Total Bilirubin AST ALT Alkaline Phosphatase Total Protein Albumin Urine Color Yellow Urine Clarity Cloudy Urine pH 7.0 Ur Specific [place] 1.025 Urine Protein >=300 H Urine Ketones Negative Urine Blood Large H Urine Nitrite Positive H Urine Bilirubin Negative Urine Urobilinogen 1.0 H Ur Leukocyte Esterase Small H Urine RBC >50 H Urine WBC >50 Ur Epithelial Cells Not Applicable Urine Crystals Not Applicable Urine Bacteria Many Urine Mucus Not Applicable Ur Culture Indicated? C&s done as ordered Urine Glucose Negative Last Vital Signs Temp 37.8 C H 04/05/19 18:18 Pulse 83 04/05/19 19:46 Resp 32 H 04/05/19 19:50 BP 165/105 H 04/05/19 19:46 Pulse Ox 100 04/05/19 19:50
[2019-04-05] MEDS: Normal Saline 1,000 ML 100 ML IV (23:41)
[2019-04-06] VITALS (7 sets, daily range): BP systolic 109–164; BP diastolic 60–90; PULSE 56–93; RESP 18–33; TEMP 36.7–38.1; O2SAT 94–97
[2019-04-06] MEDS: Heparin 5,000 UNITS/ML VIAL 5000 UNITS SC ×4 (00:09→23:33)
--- NOTE | 2019-04-06 00:48 | NUR.NOTE ---
Nursing Note: 04/05/19 2245H Admitted to Med/Surg floor Room 226. Transferred to bed from ER stretcher safely. Vital signs taken, Temperature elevated 39C, 23 breaths/min. Donis in place with clear light efe urine
[2019-04-06] MEDS: Acetaminophen 650 MG SUPP PR (01:09)
[2019-04-06] MEDS: DOXYCYCLINE 100 MG in Normal Saline 100 ML IVPB ×2 (01:57→14:52)
[2019-04-06] MEDS: LORazepam 2 MG/ML VIAL 0.5 MG IVP (05:05)
[2019-04-06] MEDS: Aspirin E.C. 81 MG TABEC PO (09:48)
[2019-04-06] MEDS: Tamsulosin 0.4 MG CAPCR PO (09:48)
[2019-04-06] MEDS: Normal Saline 1,000 ML 100 ML IV ×2 (13:11→23:28)
[2019-04-06 13:58] LABS: HCT 45.7 % (40.0-50.0); Mean Corp. HGB Concentration 32.8 g/dL (32.0-36.0); Mean Corpuscular Hemoglobin 31.3 pg (27.0-33.0); Mean Corpuscular Volume 95.4 fL (80-95); Mean Platelet Volume 11.9 fL (8.0-11.0); Platelet Count 161 x1000/uL (130-400); RBC 4.79 m/cumm (4.50-6.00); RBC Distribution Width 14.1 % (11.8-14.1); White Blood Cell Count 23.38 k/cumm (4.4-10.8)
[2019-04-06 14:19] LABS: ALT 12 U/L (12-78); AST 20 U/L (15-37); Albumin 3.2 g/dL (3.4-5.0); Alkaline Phosphatase 100 U/L (46-116); Anion Gap 9.1 mmol/L (3-11); BUN 28 mg/dL (7-18); Bilirubin, Total 0.9 mg/dL (0.2-1.0); CO2 25.9 mmol/L (21.0-32.0); Calcium 8.2 mg/dL (8.5-10.1); Chloride 106 mmol/L (98-107); Glucose 169 mg/dL (70-100); Potassium 4.1 mmol/L (3.5-5.1); Sodium 141 mmol/L (136-145); Total Protein 7.1 g/dL (6.4-8.2)
[2019-04-06] MEDS: Acetaminophen 325 MG TAB 650 MG PO (14:53)
--- NOTE | 2019-04-06 16:02 | PDOC.CMIN ---
Care Management Initial Assess REASON FOR HOSPITALIZATION:: Sepsis syndrome with UTI, LLL Pneumonia PAST MEDICAL HISTORY/PAST SURGICAL HISTORY:: Medical: Alzheimers, Dementia,. Surgical: Open Capral Tunnel Release PREVIOUS FUNCTIONAL STATUS/SOCIAL/FAMILY SUPPORTS:: Hospice care at home. Ex-, Bharti Samuel, is primary caregiver. Requires total care 01/05. CURRENT FUNCTIONAL STATUS:: Dependent on staff for ADLs. ADVANCE DIRECTIVES:: On file. Copy is in his chart Has patient been provided with information about the portal?: No Did the patient sign up for the portal?: No CODE STATUS:: DNR/DNI INSURANCE COVERAGE / FINANCIAL ISSUES:: Financial assistance 100%. Medicaid. Medicare C CURRENT HOME/COMMUNITY SERVICES/EQUIPMENT:: Hospice and all equipment at home provied bythem. PRIMARY CARE PHYSICIAN:: [facility]: Aleks Martinez MD POTENTIAL DISCHARGE NEEDS:: Resumption of current services PATIENT/FAMILY EDUCATION NEEDS:: Discharge instructions ANTICIPATED BARRIERS TO DISCHARGE:: None identified TRANSPORTATION:: Ambulance or private car. TBD PLAN:: Olaf will return home and resume Hospice services.
--- NOTE | 2019-04-06 16:05 | W.PM.PROGNOT ---
Date of Service Date of service: 04/06/19 Time of Service: 16:05 Assessment and Plan (1) Sepsis: Current visit: Yes Status: Acute Due to UTI POA in setting of urinary retention. Leucocytosis is actually worse today. Continue IV rocephin and greenwood catheter. Qualifiers: Sepsis type: sepsis due to unspecified organism Qualified Code(s): A41.9 - Sepsis, unspecified organism (2) UTI (urinary tract infection): Current visit: Yes Status: Acute As above. Qualifiers: Urinary tract infection type: site unspecified Hematuria presence: without hematuria Qualified Code(s): N39.0 - Urinary tract infection, site not specified (3) Pneumonia: Current visit: Yes Status: Acute Continue doxycycline and rocephin. Will obtain a PA/Lateral film in 24 hours Qualifiers: Pneumonia type: due to unspecified organism Laterality: left Lung location: lower lobe of lung Qualified Code(s): J18.1 - Lobar pneumonia, unspecified organism (4) Urinary retention: Current visit: No Status: Chronic Continue greenwood catheterization (5) Dementia: Current visit: No Status: Chronic End-stage; continue home therapy. on hospice - plan to discharge home as soon as possible Qualifiers: Dementia type: Alzheimer's disease Alzheimer's disease onset: unspecified onset Dementia behavioral disturbance: without behavioral disturbance Qualified Code(s): G30.9 - Alzheimer's disease, unspecified; F02.80 - Dementia in other diseases classified elsewhere without behavioral disturbance (6) AAA (abdominal aortic aneurysm): Current visit: No Status: Chronic On hospice and this will not be treated surgically. Will place a hospice consult. Qualifiers: Presence of rupture: without rupture Qualified Code(s): I71.4 - Abdominal aortic aneurysm, without rupture (7) Discharge planning issues: Current visit: Yes Status: Acute DNR/DNI (8) DVT prophylaxis: Current visit: Yes Status: Acute Low threshold to d/c SCD's if they agitate him. On heparin SC Q8h. Subjective Interval history since last seen: The patient was combative last night and now has a sitter. He is calm and asleep when I came to see him. He does wake up, but promptly falls back asleep, and does not answer any of my questions. Exam Narrative Exam Narrative: General: Elderly male, asleep in a chair, arousable, lethargic/falls back asleep HEENT: EOMI, dry MM Heart: irregularly irregular rhythm Lungs: CTAB/diminished GI: abdomen is soft, nontender, nondistended Extremities: +1 BLE edema, no clubbing/cyanosis Objective Objective Clinical Data: Abnormal lab results 04/05/19 04/05/19 04/05/19 Range/Units 18:34 18:34 19:45 WBC 16.46 H (4.4-10.8) k/cumm Hct 50.5 H (40.0-50.0) % MCV (80-95) fL MPV 11.5 H (8.0-11.0) fL Absolute Neutrophils 13.97 H (1.2-6.7) k/cumm Absolute Monocytes 1.04 H (0.11-0.7) k/cumm BUN 25 H (7-18) mg/dL Creatinine 1.56 H (0.70-1.30) mg/dL Glucose 124 H (70-100) mg/dL Calcium (8.5-10.1) mg/dL Total Bilirubin 1.2 H (0.2-1.0) mg/dL Albumin (3.4-5.0) g/dL Urine Protein >=300 H (Negative) mg/dL Urine Blood Large H (Negative) Urine Nitrite Positive H (Negative) Urine Urobilinogen 1.0 H (Up TO 0.2) EU/dL Ur Leukocyte Esterase Small H (Negative) Urine RBC >50 H (0-2) 04/06/19 04/06/19 Range/Units 13:50 13:50 WBC 23.38 H D (4.4-10.8) k/cumm Hct (40.0-50.0) % MCV 95.4 H (80-95) fL MPV 11.9 H (8.0-11.0) fL Absolute Neutrophils (1.2-6.7) k/cumm Absolute Monocytes (0.11-0.7) k/cumm BUN 28 H (7-18) mg/dL Creatinine 1.80 H (0.70-1.30) mg/dL Glucose 169 H (70-100) mg/dL Calcium 8.2 L (8.5-10.1) mg/dL Total Bilirubin (0.2-1.0) mg/dL Albumin 3.2 L (3.4-5.0) g/dL Urine Protein (Negative) mg/dL Urine Blood (Negative) Urine Nitrite (Negative) Urine Urobilinogen (Up TO 0.2) EU/dL Ur Leukocyte Esterase (Negative) Urine RBC (0-2) Vital Signs Temperature 37.8 C H 04/06/19 11:47 Temperature Source Tympanic 04/06/19 11:47 Pulse 73 04/06/19 11:47 Pulse Rhythm Regular 04/05/19 22:59 Pulse 117 H 04/05/19 19:50 Respiratory Rate 20 04/06/19 11:47 Respiratory Effort 04/05/19 22:59 Respiratory Depth Shallow 04/05/19 22:59 Respiratory Pattern Tachypnea 04/05/19 22:59 Blood Pressure 109/71 04/06/19 11:47 Blood Pressure Mean 119 04/05/19 19:46 Blood Pressure Position Sitting 04/05/19 18:18 Pulse Oximetry 95 04/06/19 11:47 Oxygen Delivery Method Room Air 04/06/19 11:47 Oxygen Flow Rate 0 04/06/19 11:47 Intake & Output 04/05/19 04/06/19 04/06/19 23:59 11:59 23:59 Intake Total 1050 / 1050 1750 / 1750 Output Total 600 / 600 Balance 1050 / 1050 1150 / 1150 Weight 81.6 kg 82.3 kg Intake: IV 1050 / 1050 1100 / 1100 Oral 650 / 650 Output: Urine 600 / 600 Other: Urine Color Straw Dark Holly Urine Appearance Clear Clear Comment Previous catheter removed Stool Size Moderate Stool Characteristics Soft Formed Laboratory Results WBC 23.38 k/cumm (4.4-10.8) H D 04/06/19 13:50 RBC 4.79 m/cumm (4.50-6.00) 04/06/19 13:50 Hgb 15.0 g/dL (13.5-17.5) 04/06/19 13:50 Hct 45.7 % (40.0-50.0) 04/06/19 13:50 MCV 95.4 fL (80-95) H 04/06/19 13:50 MCH 31.3 pg (27.0-33.0) 04/06/19 13:50 MCHC 32.8 g/dL (32.0-36.0) 04/06/19 13:50 RDW 14.1 % (11.8-14.1) 04/06/19 13:50 Plt Count 161 x1000/uL (130-400) 04/06/19 13:50 MPV 11.9 fL (8.0-11.0) H 04/06/19 13:50 Immature Gran % 0.2 04/05/19 18:34 Neutrophils % 84.9 04/05/19 18:34 Lymphocytes % 7.5 04/05/19 18:34 Monocytes % 6.3 04/05/19 18:34 Eosinophils % 0.9 04/05/19 18:34 Basophils % 0.2 04/05/19 18:34 Absolute Neutrophils 13.97 k/cumm (1.2-6.7) H 04/05/19 18:34 Absolute Lymphocytes 1.23 k/cumm (1.2-3.4) 04/05/19 18:34 Absolute Monocytes 1.04 k/cumm (0.11-0.7) H 04/05/19 18:34 Absolute Eosinophils 0.15 k/cumm (0.0-0.7) 04/05/19 18:34 Absolute Basophils 0.03 k/cumm (0.0-0.2) 04/05/19 18:34 PT 10.2 sec (9.3-11.0) 04/05/19 18:34 INR 1.0 (0.9-1.1) 04/05/19 18:34 APTT 25.2 sec (21.0-31.4) 04/05/19 18:34 Sodium 141 mmol/L (136-145) 04/06/19 13:50 Potassium 4.1 mmol/L (3.5-5.1) 04/06/19 13:50 Chloride 106 mmol/L (98-107) 04/06/19 13:50 Carbon Dioxide 25.9 mmol/L (21.0-32.0) 04/06/19 13:50 Anion Gap 9.1 mmol/L (3-11) 04/06/19 13:50 BUN 28 mg/dL (7-18) H 04/06/19 13:50 Creatinine 1.80 mg/dL (0.70-1.30) H 04/06/19 13:50 Estimated GFR/1.73 m2 36.30 (mL/min/1.73m2) 04/06/19 13:50 Glucose 169 mg/dL (70-100) H 04/06/19 13:50 Lactate 1.1 mmol/l (0.6-1.4) 04/05/19 18:34 Calcium 8.2 mg/dL (8.5-10.1) L 04/06/19 13:50 Magnesium 2.0 mg/dL (1.8-2.4) 04/05/19 18:34 Total Bilirubin 0.9 mg/dL (0.2-1.0) 04/06/19 13:50 AST 20 U/L (15-37) 04/06/19 13:50 ALT 12 U/L (12-78) 04/06/19 13:50 Alkaline Phosphatase 100 U/L (46-116) 04/06/19 13:50 Total Protein 7.1 g/dL (6.4-8.2) 04/06/19 13:50 Albumin 3.2 g/dL (3.4-5.0) L 04/06/19 13:50 Urine Color Yellow (Yellow) 04/05/19 19:45 Urine Clarity Cloudy (Clear) 04/05/19 19:45 Urine pH 7.0 (5-8) 04/05/19 19:45 Ur Specific [place] 1.025 (1.005-1.025) 04/05/19 19:45 Urine Protein >=300 mg/dL (Negative) H 04/05/19 19:45 Urine Ketones Negative mg/dL (Negative) 04/05/19 19:45 Urine Blood Large (Negative) H 04/05/19 19:45 Urine Nitrite Positive (Negative) H 04/05/19 19:45 Urine Bilirubin Negative (Negative) 04/05/19 19:45 Urine Urobilinogen 1.0 EU/dL (Up TO 0.2) H 04/05/19 19:45 Ur Leukocyte Esterase Small (Negative) H 04/05/19 19:45 Urine RBC >50 (0-2) H 04/05/19 19:45 Urine WBC >50 HPF (0-5) 04/05/19 19:45 Ur Epithelial Cells Not Applicable 04/05/19 19:45 Urine Crystals Not Applicable 04/05/19 19:45 Urine Bacteria Many HPF (Negative) 04/05/19 19:45 Urine Mucus Not Applicable 04/05/19 19:45 Ur Culture Indicated? C&s done as ordered 04/05/19 19:45 Urine Glucose Negative mg/dL (Negative) 04/05/19 19:45
[2019-04-06] MEDS: cefTRIAXone 2 GM/50 ML BAG IVPB (17:46)
[2019-04-06] MEDS: Normal Saline Flush 10 ML SYR IVP (17:46)
[2019-04-06] MEDS: Donepezil 5 MG TAB 10 MG PO (22:07)
[2019-04-07] VITALS (10 sets, daily range): BP systolic 112–163; BP diastolic 71–97; PULSE 59–98; RESP 16–39; TEMP 36.6–37.8; O2SAT 93–98
[2019-04-07] MEDS: DOXYCYCLINE 100 MG in Normal Saline 100 ML IVPB ×2 (01:43→15:11)
[2019-04-07] MEDS: LORazepam 1 MG TAB PO ×2 (03:34→21:30)
--- NOTE | 2019-04-07 07:01 | NUR.NOTE ---
Nursing Note: 04/07/19 At 2342H patient was observed to have increased respirations this RN was informed. Patient was then observed further and nursing made adjustments to his bed to make him comfortable. Patient's respirations fluctuates from 20s to 30s. At 0315H patient observer called this RN attention due to increased work of breathing and increased respirations. The patient scored 6 on pain alzheimers/dementia which prompted this RN to give oral morphine. Further observation done and patient seems uneasy still. Patient was given Lorazepam 1mg and was further observed. Respirations has gone down at 0441H to 25 breaths/min. Patient is now sitting in recliner respirations has gone down to 19 breaths/min
[2019-04-07] MEDS: Heparin 5,000 UNITS/ML VIAL 5000 UNITS SC ×2 (08:59→16:56)
[2019-04-07] MEDS: Aspirin E.C. 81 MG TABEC PO (08:59)
[2019-04-07] MEDS: Tamsulosin 0.4 MG CAPCR PO (08:59)
[2019-04-07 13:28] LABS: Abs Immature Grans 0.05 k/cumm (0.0-0.09); Basophils % 0.2; Eosinophils % 1.1; HCT 43.8 % (40.0-50.0); HGB 14.3 g/dL (13.5-17.5); Immature Grans % 0.3; Lymphocytes % 7.9; Mean Corp. HGB Concentration 32.6 g/dL (32.0-36.0); Mean Corpuscular Hemoglobin 31.2 pg (27.0-33.0); Mean Corpuscular Volume 95.4 fL (80-95); Mean Platelet Volume 12.1 fL (8.0-11.0); Monocytes % 6.9; Neutrophils % 83.6; Platelet Count 148 x1000/uL (130-400); RBC 4.59 m/cumm (4.50-6.00); RBC Distribution Width 14.2 % (11.8-14.1); White Blood Cell Count 17.74 k/cumm (4.4-10.8)
[2019-04-07 13:29] LABS: Absolute Basophil Count 0.04 k/cumm (0.0-0.2); Absolute Monocyte Count 1.22 k/cumm (0.11-0.7); Absolute Neutrophil Count 14.83 k/cumm (1.2-6.7)
[2019-04-07 13:40] LABS: Anion Gap 9.1 mmol/L (3-11); BUN 26 mg/dL (7-18); CO2 25.9 mmol/L (21.0-32.0); Calcium 8.4 mg/dL (8.5-10.1); Chloride 107 mmol/L (98-107); Estimated GFR 44.81 (mL/min/1.73m2); Glucose 134 mg/dL (70-100); Potassium 3.8 mmol/L (3.5-5.1); Sodium 142 mmol/L (136-145)
--- NOTE | 2019-04-07 14:34 | INITIAL_ITS ---
Care Management Initial Assess REASON FOR HOSPITALIZATION:: Sepsis syndrome with UTI, LLL Pneumonia PAST MEDICAL HISTORY/PAST SURGICAL HISTORY:: Medical: Alzheimers, Dementia,. Surgical: Open Capral Tunnel Release PREVIOUS FUNCTIONAL STATUS/SOCIAL/FAMILY SUPPORTS:: Hospice care at home. Ex-Wi fe, Bharti Samuel, is primary caregiver. Requires total care 01/05. CURRENT FUNCTIONAL STATUS:: Dependent on staff for ADLs. ADVANCE DIRECTIVES:: On file. Copy is in his chart Has patient been provided with information about the portal?: No Did the patient sign up for the portal?: No CODE STATUS:: DNR/DNI INSURANCE COVERAGE / FINANCIAL ISSUES:: Financial assistance 100%. Medicaid. Medicare C CURRENT HOME/COMMUNITY SERVICES/EQUIPMENT:: Hospice and all equipment at home provied bythem. PRIMARY CARE PHYSICIAN:: [facility]: Aleks Martinez MD POTENTIAL DISCHARGE NEEDS:: Resumption of current services PATIENT/FAMILY EDUCATION NEEDS:: Discharge instructions ANTICIPATED BARRIERS TO DISCHARGE:: None identified TRANSPORTATION:: Ambulance or private car. TBD PLAN:: Olaf will return home and resume Hospice services.
--- NOTE | 2019-04-07 14:34 | PDOC.CMPRO ---
Care Management Progress Note S/O: Experiencing periods of agitation. Removing his clothes and requiring direct observation to prevent falls. Bharti is here and has been wheeling him around the unit to help him relax. A: 83 y.o male admitted for sepsis syndrome and UTI, LLL Pneumonia remains on acute status today. Receiving IV antibiotics. P: Olaf will return home and resume Hospice Services once the infection has been resolved.
--- NOTE | 2019-04-07 14:45 | PGE_ITS ---
Date of Service Date of service: 04/07/19 Time of Service: 14:38 Assessment and Plan (1) Sepsis: Start date: 04/07/19 Start time: 14:41 Current visit: Yes Status: Acute * A// Due to UTI POA in setting of urinary retention. Leukocytosis better today. * * P//Continue IV rocephin and greenwood catheter. Qualifiers: Sepsis type: sepsis due to unspecified organism Qualified Code(s): A41.9 - Sepsis, unspecified organism (2) UTI (urinary tract infection): Start date: 04/07/19 Start time: 14:42 Current visit: Yes Status: Acute As above. Qualifiers: Urinary tract infection type: site unspecified Hematuria presence: without hematuria Qualified Code(s): N39.0 - Urinary tract infection, site not specified (3) Pneumonia: Start date: 04/07/19 Start time: 14:42 Current visit: Yes Status: Acute A//LCTAB, diminished. P//Continue doxycycline and rocephin. Lateral/PA CXR pending at this time. Qualifiers: Pneumonia type: due to unspecified organism Laterality: left Lung location: lower lobe of lung Qualified Code(s): J18.1 - Lobar pneumonia, unspecified organism (4) Urinary retention: Start date: 04/07/19 Start time: 14:44 Current visit: No Status: Chronic A//urinary retention per POA P//Continue greenwood catheterization (5) Dementia: Start date: 04/07/19 Start time: 14:44 Current visit: No Status: Chronic End-stage; continue home therapy. on hospice - plan to discharge home as soon as possible Qualifiers: Dementia type: Alzheimer's disease Alzheimer's disease onset: unspecified onset Dementia behavioral disturbance: without behavioral disturbance Qualified Code(s): G30.9 - Alzheimer's disease, unspecified; F02.80 - Dementia in other diseases classified elsewhere without behavioral disturbance (6) AAA (abdominal aortic aneurysm): Start date: 04/07/19 Start time: 14:45 Current visit: No Status: Chronic A//On hospice and this will not be treated surgically. P//hospice consulted. Qualifiers: Presence of rupture: without rupture Qualified Code(s): I71.4 - Abdominal aortic aneurysm, without rupture (7) Discharge planning issues: Start date: 04/07/19 Start time: 14:45 Current visit: Yes Status: Acute DNR/DNI (8) DVT prophylaxis: Start date: 04/07/19 Start time: 14:45 Current visit: Yes Status: Acute Low threshold to d/c SCD's if they agitate him. On heparin SC Q8h. Subjective Patient reports: other Interval history since last seen: Sitting up in wheelchair, unaware of what is taking place around him due to dementia, laughing and when asked questions laughs and states I don't know, I just don't know. Exam Narrative Exam Narrative: General: Elderly male, sitting up in wheelchair, laughing. HEENT: EOMI, dry MM Heart: irregularly irregular rhythm Lungs: CTAB/diminished GI: abdomen is soft, nontender, nondistended Extremities: +1 BLE edema, no clubbing/cyanosis Objective Objective Clinical Data: Abnormal lab results 04/07/19 04/07/19 Range/Units 13:00 13:00 WBC 17.74 H (4.4-10.8) k/cumm MCV 95.4 H (80-95) fL RDW 14.2 H (11.8-14.1) % MPV 12.1 H (8.0-11.0) fL Absolute Neutrophils 14.83 H (1.2-6.7) k/cumm Absolute Monocytes 1.22 H (0.11-0.7) k/cumm BUN 26 H (7-18) mg/dL Creatinine 1.50 H (0.70-1.30) mg/dL Glucose 134 H (70-100) mg/dL Calcium 8.4 L (8.5-10.1) mg/dL Vital Signs Temperature 36.6 C 04/07/19 11:23 Temperature Source Tympanic 04/07/19 11:23 Pulse 59 L 04/07/19 11:23 Pulse Rhythm Regular 04/07/19 07:30 Pulse 117 H 04/05/19 19:50 Respiratory Rate 16 04/07/19 11:23 Respiratory Effort Non-Labored 04/07/19 07:30 Respiratory Depth Normal 04/07/19 07:30 Respiratory Pattern Normal 04/07/19 07:30 Blood Pressure 144/94 H 04/07/19 11:23 Blood Pressure Mean 119 04/05/19 19:46 Blood Pressure Position Sitting 04/05/19 18:18 Pulse Oximetry 96 04/07/19 11:23 Oxygen Delivery Method Room Air 04/07/19 11:23 Oxygen Flow Rate 0 04/07/19 11:23 Pain Level 0 04/06/19 23:42 Comment 04/06/19 23:42 Intake & Output 04/06/19 04/07/19 04/07/19 23:59 11:59 23:59 Intake Total 1150 / 2900 1378.333 / 1478.333 100 / 1478.333 Output Total 275 / 875 400 / 400 Balance / 5 978.333 / 1078.333 100 / 1078.333 Weight 79.3 kg Intake: IV 1150 / 2250 978.333 / 978.333 Oral 400 / 500 100 / 500 Output: Urine 275 / 875 400 / 400 Other: Urine Color Dark Holly Straw Urine Appearance Clear Stool Size Small Moderate Stool Characteristics Soft Soft Liquid Liquid Brown Brown Laboratory Results WBC 17.74 k/cumm (4.4-10.8) H 04/07/19 13:00 RBC 4.59 m/cumm (4.50-6.00) 04/07/19 13:00 Hgb 14.3 g/dL (13.5-17.5) 04/07/19 13:00 Hct 43.8 % (40.0-50.0) 04/07/19 13:00 MCV 95.4 fL (80-95) H 04/07/19 13:00 MCH 31.2 pg (27.0-33.0) 04/07/19 13:00 MCHC 32.6 g/dL (32.0-36.0) 04/07/19 13:00 RDW 14.2 % (11.8-14.1) H 04/07/19 13:00 Plt Count 148 x1000/uL (130-400) 04/07/19 13:00 MPV 12.1 fL (8.0-11.0) H 04/07/19 13:00 Immature Gran % 0.3 04/07/19 13:00 Neutrophils % 83.6 04/07/19 13:00 Lymphocytes % 7.9 04/07/19 13:00 Monocytes % 6.9 04/07/19 13:00 Eosinophils % 1.1 04/07/19 13:00 Basophils % 0.2 04/07/19 13:00 Absolute Neutrophils 14.83 k/cumm (1.2-6.7) H 04/07/19 13:00 Absolute Lymphocytes 1.40 k/cumm (1.2-3.4) 04/07/19 13:00 Absolute Monocytes 1.22 k/cumm (0.11-0.7) H 04/07/19 13:00 Absolute Eosinophils 0.20 k/cumm (0.0-0.7) 04/07/19 13:00 Absolute Basophils 0.04 k/cumm (0.0-0.2) 04/07/19 13:00 PT 10.2 sec (9.3-11.0) 04/05/19 18:34 INR 1.0 (0.9-1.1) 04/05/19 18:34 APTT 25.2 sec (21.0-31.4) 04/05/19 18:34 Sodium 142 mmol/L (136-145) 04/07/19 13:00 Potassium 3.8 mmol/L (3.5-5.1) 04/07/19 13:00 Chloride 107 mmol/L (98-107) 04/07/19 13:00 Carbon Dioxide 25.9 mmol/L (21.0-32.0) 04/07/19 13:00 Anion Gap 9.1 mmol/L (3-11) 04/07/19 13:00 BUN 26 mg/dL (7-18) H 04/07/19 13:00 Creatinine 1.50 mg/dL (0.70-1.30) H 04/07/19 13:00 Estimated GFR/1.73 m2 44.81 (mL/min/1.73m2) 04/07/19 13:00 Glucose 134 mg/dL (70-100) H 04/07/19 13:00 Lactate 1.1 mmol/l (0.6-1.4) 04/05/19 18:34 Calcium 8.4 mg/dL (8.5-10.1) L 04/07/19 13:00 Magnesium 2.0 mg/dL (1.8-2.4) 04/07/19 13:00 Total Bilirubin 0.9 mg/dL (0.2-1.0) 04/06/19 13:50 AST 20 U/L (15-37) 04/06/19 13:50 ALT 12 U/L (12-78) 04/06/19 13:50 Alkaline Phosphatase 100 U/L (46-116) 04/06/19 13:50 Total Protein 7.1 g/dL (6.4-8.2) 04/06/19 13:50 Albumin 3.2 g/dL (3.4-5.0) L 04/06/19 13:50 Urine Color Yellow (Yellow) 04/05/19 19:45 Urine Clarity Cloudy (Clear) 04/05/19 19:45 Urine pH 7.0 (5-8) 04/05/19 19:45 Ur Specific [place] 1.025 (1.005-1.025) 04/05/19 19:45 Urine Protein >=300 mg/dL (Negative) H 04/05/19 19:45 Urine Ketones Negative mg/dL (Negative) 04/05/19 19:45 Urine Blood Large (Negative) H 04/05/19 19:45 Urine Nitrite Positive (Negative) H 04/05/19 19:45 Urine Bilirubin Negative (Negative) 04/05/19 19:45 Urine Urobilinogen 1.0 EU/dL (Up TO 0.2) H 04/05/19 19:45 Ur Leukocyte Esterase Small (Negative) H 04/05/19 19:45 Urine RBC >50 (0-2) H 04/05/19 19:45 Urine WBC >50 HPF (0-5) 04/05/19 19:45 Ur Epithelial Cells Not Applicable 04/05/19 19:45 Urine Crystals Not Applicable 04/05/19 19:45 Urine Bacteria Many HPF (Negative) 04/05/19 19:45 Urine Mucus Not Applicable 04/05/19 19:45 Ur Culture Indicated? C&s done as ordered 04/05/19 19:45 Urine Glucose Negative mg/dL (Negative) 04/05/19 19:45
--- NOTE | 2019-04-07 14:51 | DI.RAD_ITS ---
SYMPTOM/DIAGNOSIS: SOB PA AND LATERAL CHEST: Comparison is made with 05 April 2019. The heart is enlarged and the aorta is tortuous, unchanged. The film is rotated. There are underlying fibrotic changes. No acute infiltrate, effusion or pulmonary edema is seen. IMPRESSION: No acute abnormality.
--- NOTE | 2019-04-07 15:49 | DI.VRAD_ITS ---
EXAM: XR Chest, 2 Views EXAM DATE/TIME: 04/07/2019 1:58 PM CLINICAL HISTORY: 83 years old, male; Other: SOB TECHNIQUE: Imaging protocol: XR of the chest, 2 views. COMPARISON: SC XR PORTABLE CHEST AP 04/05/2019 7:05 PM FINDINGS: Rotation to the ELIGIO projection. Markedly tortuous thoracic aorta without definite evidence of aneurysmal dilatation. No focal pulmonary consolidation. Costophrenic angles sharp. Mild cardiomegaly unchanged. IMPRESSION: No definite evidence of acute cardiopulmonary disease allowing for rotation. Dictated and Authenticated by: Santiago Musa MD. Ordering:MIREILLE Dickey MD
[2019-04-07] MEDS: cefTRIAXone 2 GM/50 ML BAG IVPB (18:46)
[2019-04-07] MEDS: Normal Saline Flush 10 ML SYR IVP (18:46)
[2019-04-07] MEDS: Donepezil 5 MG TAB 10 MG PO (21:30)
[2019-04-08] MEDS: Heparin 5,000 UNITS/ML VIAL 5000 UNITS SC ×2 (01:41→07:39)
[2019-04-08] MEDS: DOXYCYCLINE 100 MG in Normal Saline 100 ML IVPB (01:41)
[2019-04-08 04:35] VITALS: BP 138/70; PULSE 74; RESP 20; TEMP 36.4; O2SAT 95
[2019-04-08 07:35] VITALS: BP 163/99; PULSE 72; RESP 18; TEMP 36.1; O2SAT 96
[2019-04-08] MEDS: Tamsulosin 0.4 MG CAPCR PO (07:39)
[2019-04-08] MEDS: Aspirin E.C. 81 MG TABEC PO (07:39)
[2019-04-08 07:50] LABS: Abs Immature Grans 0.03 k/cumm (0.0-0.09); Absolute Basophil Count 0.04 k/cumm (0.0-0.2); Absolute Eosinophil Count 0.41 k/cumm (0.0-0.7); Absolute Monocyte Count 1.05 k/cumm (0.11-0.7); Absolute Neutrophil Count 9.37 k/cumm (1.2-6.7); Basophils % 0.3; Eosinophils % 3.3; HCT 46.9 % (40.0-50.0); HGB 15.2 g/dL (13.5-17.5); Immature Grans % 0.2; Lymphocytes % 12.1; Mean Corp. HGB Concentration 32.4 g/dL (32.0-36.0); Mean Corpuscular Hemoglobin 30.8 pg (27.0-33.0); Mean Corpuscular Volume 95.1 fL (80-95); Mean Platelet Volume 11.8 fL (8.0-11.0); Monocytes % 8.5; Neutrophils % 75.6; Platelet Count 160 x1000/uL (130-400); RBC 4.93 m/cumm (4.50-6.00); RBC Distribution Width 14.2 % (11.8-14.1)
[2019-04-08 09:14] LABS: Anion Gap 12.5 mmol/L (3-11); BUN 22 mg/dL (7-18); CO2 25.5 mmol/L (21.0-32.0); CREATININE 1.34 mg/dL (0.70-1.30); Calcium 9.1 mg/dL (8.5-10.1); Chloride 106 mmol/L (98-107); Estimated GFR 51.03 (mL/min/1.73m2); Glucose 105 mg/dL (70-100); Magnesium 2.3 mg/dL (1.8-2.4); Potassium 3.9 mmol/L (3.5-5.1); Sodium 144 mmol/L (136-145)
[2019-04-08 10:00] VITALS: O2SAT 97
--- NOTE | 2019-04-08 11:14 | PDOC.CMDIS ---
LACE Index Scoring Tool - Questions: Length of Stay (in days): 3 Acuity (Admit via E.D.?): Yes Comorbidities: Dementia E.D. Visits: 3 - Answers: Total Score: 12 Risk of Readmission: High Risk Care Management Discharge Reason for Hospitalization: Sepsis syndrome with UTI, LLL Pneumonia Discharge Plan: Olaf will return home on Hospice when ready per MD. CM met with Olaf and his former , Bharti who is his primary caregiver at home. She reported anticipating bring him home today, having all needed DME and being comfortable with transporting him home. CM notified Lucille of [facility] of discharge timing. Patient/Family Education Needs: Review of discharge instructions, discuss continued care needs upon discharge. Services Needed at Discharge: Home Health Care Services (Resume Hospice )
--- NOTE | 2019-04-08 11:21 | CMDISCH_ITS ---
LACE Index Scoring Tool - Questions: Length of Stay (in days): 3 Acuity (Admit via E.D.?): Yes Comorbidities: Dementia E.D. Visits: 3 - Answers: Total Score: 12 Risk of Readmission: High Risk Care Management Discharge Reason for Hospitalization: Sepsis syndrome with UTI, LLL Pneumonia Discharge Plan: Olaf will return home on Hospice when ready per MD. CM met with Olaf and his former , Bharti who is his primary caregiver at home. She reported anticipating bring him home today, having all needed DME and being comfortable with transporting him home. CM notified Lucille of [facility] of discharge timing. Patient/Family Education Needs: Review of discharge instructions, discuss continued care needs upon discharge. Services Needed at Discharge: Home Health Care Services (Resume Hospice )
--- NOTE | 2019-04-08 11:49 | DSE_ITS ---
Date of service: 04/08/19 Time of Service: 11:46 DS: Diagnosis Discharge Diagnosis (1) Sepsis: Status: Acute (2) UTI (urinary tract infection): Status: Acute (3) Pneumonia: Status: Ruled-out (4) Urinary retention: Status: Chronic (5) Dementia: Status: Chronic (6) AAA (abdominal aortic aneurysm): Status: Chronic (7) CKD (chronic kidney disease), stage III: Status: Acute (8) COPD (chronic obstructive pulmonary disease): Status: Acute (9) Depression with anxiety: Status: Acute (10) Essential hypertension: Status: Acute Discharge Plan Disposition Patient Disposition: HOME W/HOME HEALTH SERVICE Condition: Stable Discharge Details Reason For Visit: SEPSIS SYNDROME WITH UTI, LLL PNEUMONIA Admit Date/Time: 04/05/19 20:27 Admit Provider: Kojo Pat Attending Provider: Kojo Pat Primary Care Provider: Aleks Martinez Hospital Course Hospital Course: Mr Bailey is an 83 year old male who is on home hospice for inoperable AAA, dementia, urinary retention, requiring an indwelling greenwood catheterization, CKD III admitted to [facility] on 04/05/19 with sepsis due to a UTI. While there was an initial suspicion for pneumonia as well, this was ruled out. He was treated empirically with rocephin and doxycycline. Urine C&S grew 2 different strains of Enterobacter cloacae. This is sensitive to levofloxacin, ciprofloxacin, bactrim, zosyn, ceftriaxone, but not ancef. On discharge the patient will go home with 7 days of levofloxacin. His blood cultures are negative to date. On discharge, his home hospice services are to be resumed. 45 minutes were spent on care for patient as well as on discharge paperwork for the patient on day of discharge. Home Meds and New Rx's Prescriptions: New levofloxacin 250 mg tablet 250 mg PO DAILY Qty: 7 RF: 0 Continued Ensure Original liquid 474 ml PO DAILY Qty: 47825 RF: 11 melatonin 5 mg tablet 5 mg PO HS PRN (Reason: sleep) Qty: 30 RF: 2 naproxen sodium [Aleve] 220 MG capsule 220 mg PO BID PRNRF: 0 Morphine Sulfate 100 MG/5 ML solution 0.25 - 1 ml PO Q1-4H PRN Qty: 30 RF: 0 aspirin [Adult Low Dose Aspirin] 81 mg tablet,delayed release (DR/EC) 81 mg PO DAILY RF: 0 donepezil 10 mg tablet 10 mg PO DAILY Qty: 90 RF: 3 amlodipine 2.5 mg tablet 2.5 mg PO DAILY Qty: 90 RF: 4 tamsulosin [Flomax] 0.4 mg capsule 0.4 mg PO DAILY Qty: 30 RF: 11 sennosides [senna] 8.6 mg tablet 17.2 mg PO DAILY RF: 0 Discontinued sulfamethoxazole-trimethoprim [Bactrim DS] 800-160 mg tablet 1 tab PO BID Qty: 28 RF: 0 amlodipine 5 mg tablet 5 mg PO DAILY Qty: 90 RF: 4 Discharge Instructions Instructions: Levofloxacin (By mouth), Urinary Tract Infection in Men (DC) Additional Instructions: Finish antibiotics as prescribed. Follow up with home hospice for further clinical needs. Care Plan Goals: Resume home hospice Activity:: Activity as Tolerated Equipment/Supplies:: No Equipment Needed Diet:: As Tolerated Discharge Orders Discharge Orders: Discharge Order (Routine); Ordered 04/08/19 Ordered By: Sindy Sanchez Exam Narrative Exam Narrative: General: Elderly male, much more alert, pleasant, compliant, A&Ox1 HEENT: EOMI, MMM Heart: RRR Lungs: CTAB/diminished GI: abdomen is soft, nontender, nondistended Extremities: +1 BLE edema - better, no clubbing/cyanosis DS: Data Vitals/I&O Vitals and I&O: Vital Signs Temperature 36.1 C L 04/08/19 07:35 Temperature Source Tympanic 04/08/19 07:35 Pulse 72 04/08/19 07:35 Pulse Rhythm Regular 04/08/19 09:07 Pulse 117 H 04/05/19 19:50 Respiratory Rate 18 04/08/19 07:35 Respiratory Effort Non-Labored 04/08/19 09:07 Respiratory Depth Normal 04/07/19 07:30 Respiratory Pattern Normal 04/07/19 07:30 Blood Pressure 163/99 H 04/08/19 07:35 Blood Pressure Mean 119 04/05/19 19:46 Blood Pressure Position Sitting 04/05/19 18:18 Pulse Oximetry 96 04/08/19 07:35 Oxygen Delivery Method Room Air 04/08/19 07:35 Oxygen Flow Rate 0 04/08/19 07:35 Pain Level 0 07/01/19 07:35 Comment 04/06/19 23:42 Intake & Output 04/07/19 04/07/19 04/08/19 11:59 23:59 11:59 Intake Total 1378.333 / 1808.333 430 / 1808.333 150 / 150 Output Total 400 / 800 400 / 800 700 / 700 Balance 978.333 / 1008.333 30 / 1008.333 -550 / -550 Weight 79.3 kg 81.2 kg Intake: IV 978.333 / 1128.333 150 / 1128.333 100 / 100 Oral 400 / 680 280 / 680 50 / 50 Output: Urine 400 / 800 400 / 800 700 / 700 Other: Urine Color Straw Dark Holly Dark Holly Urine Appearance Clear Clear Clear Stool Size Moderate Stool Characteristics Soft Liquid Brown Completed studies during hospitalization [Text1]: CXR 04/05/19: Cardiomegaly. Question of a left lower lobe infiltrate. CXR 04/07/19: No definite evidence of acute cardiopulmonary disease allowing for rotation. Labs on day of discharge: Labs from last 24 hours 04/08/19 04/08/19 04/07/19 07:30 07:30 13:00 WBC 12.40 H D 17.74 H RBC 4.93 4.59 Hgb 15.2 14.3 Hct 46.9 43.8 MCV 95.1 H 95.4 H MCH 30.8 31.2 MCHC 32.4 32.6 RDW 14.2 H 14.2 H Plt Count 160 148 MPV 11.8 H 12.1 H Immature Gran % 0.2 0.3 Neutrophils % 75.6 83.6 Lymphocytes % 12.1 7.9 Monocytes % 8.5 6.9 Eosinophils % 3.3 1.1 Basophils % 0.3 0.2 Absolute Neutrophils 9.37 H 14.83 H Absolute Lymphocytes 1.50 1.40 Absolute Monocytes 1.05 H 1.22 H Absolute Eosinophils 0.41 0.20 Absolute Basophils 0.04 0.04 Sodium 144 Potassium 3.9 Chloride 106 Carbon Dioxide 25.5 Anion Gap 12.5 H BUN 22 H Creatinine 1.34 H Estimated GFR/1.73 m2 51.03 Glucose 105 H Calcium 9.1 Magnesium 2.3 04/07/19 13:00 WBC RBC Hgb Hct MCV MCH MCHC RDW Plt Count MPV Immature Gran % Neutrophils % Lymphocytes % Monocytes % Eosinophils % Basophils % Absolute Neutrophils Absolute Lymphocytes Absolute Monocytes Absolute Eosinophils Absolute Basophils Sodium 142 Potassium 3.8 Chloride 107 Carbon Dioxide 25.9 Anion Gap 9.1 BUN 26 H Creatinine 1.50 H Estimated GFR/1.73 m2 44.81 Glucose 134 H Calcium 8.4 L Magnesium 2.0 Preliminary micro results at discharge 04/05/19 19:45 Urine Culture - Preliminary Urine - Cath Greenwood Indwelling Enterobacter Cloacae Complex#2 Enterobacter Cloacae Complex 04/05/19 19:05 Blood Culture - Preliminary Blood NO GROWTH 48 HOURS 04/05/19 18:34 Blood Culture - Preliminary Blood NO GROWTH 48 HOURS PFS Surgical History Open Carpal Tunnel release Family History Mother No problems noted. Father Alzheimer disease Sister No problems noted. Sister No problems noted. Brother No problems noted. Brother No problems noted. Brother No problems noted. Social History Smoking/Tobacco Use Status: Former Tobacco Use Alcohol Intake: never Drug use: Never Substance use type: does not use What type of physical activity do you participate in: none Estrellita/Religious: MOSQUE Seatbelt use: always Additional Social history: unable to assess
== END 2019-04-08 12:39 | disposition home health service (06) | DRG 689 ==
LOC: ER 21:05 → MS 22:49
PROVIDERS: Admitting Provider Family Medicine; Emergency Provider Emergency Medicine; PCP Family Medicine; Visit Provider Internal Medicine
DX: N39.0 Urinary tract infection, site not specified (principal); J18.9 Pneumonia, unspecified organism; B96.89 Other specified bacterial agents as the cause of diseases classified elsewhere; R33.9 Retention of urine, unspecified; F41.8 Other specified anxiety disorders; I12.9 Hypertensive chronic kidney disease with stage 1 through stage 4 chronic kidney disease, or unspecified chronic kidney disease; N18.3 Chronic kidney disease, stage 3 (moderate); J44.9 Chronic obstructive pulmonary disease, unspecified; G30.9 Alzheimer's disease, unspecified; F02.80 Dementia in other diseases classified elsewhere, unspecified severity, without behavioral disturbance, psychotic disturbance, mood disturbance, and anxiety; I71.4 Abdominal aortic aneurysm, without rupture; R41.82 Altered mental status, unspecified; I10 Essential (primary) hypertension; Z96.0 Presence of urogenital implants; Z51.5 Encounter for palliative care; Z66 Do not resuscitate
CPT/HCPCS: 36415; 80048; 80053; 85027; 87040; 87077; 93005; 96361; 96365; 96366; 99223; 99232; 99233; 99239; 99285; 71045; 71046; 81003; 81015; 83605; 83735; 85025; 85610; 85730; 87086; 87186; 93010; J1644; J2060